=== PATIENT | male | born 1945 | race Caucasian/White ===

== ENCOUNTER 2020-03-30 08:28 | Emergency (ER) | payer OTHER, MEDICARE ==
[~2020-03-30] VITALS: Ht 177.8 cm; Wt 106.8 kg
[2020-03-30 08:33] VITALS: Ht 177.8 cm; Wt 106.8 kg
[2020-03-30] MEDS ORDERED: TOPROL XL25 MG PO (08:35)
[2020-03-30] MEDS ORDERED: JARDIANCE25 MG PO (08:35)
[2020-03-30] MEDS ORDERED: ASCORBIC ACID500 MG PO (08:36)
[2020-03-30] MEDS ORDERED: VITAMIN E100 UNIT PO (08:36)
[2020-03-30] MEDS ORDERED: NIASPAN1000 MG PO (08:36)
[2020-03-30] MEDS ORDERED: FISH OIL 1,0001 CA1 PO (08:36)
[2020-03-30] MEDS ORDERED: CARDURA4 MG PO (08:36)
[2020-03-30] MEDS ORDERED: GLUCOPHAGE1000 MG PO (08:37)
[2020-03-30] MEDS ORDERED: LISINOPRIL10 MG PO (08:37)
[2020-03-30] MEDS ORDERED: PRAVACHOL40 MG PO (08:37)
[2020-03-30] MEDS ORDERED: GLIMEPIRIDE2 MG PO (08:37)
[2020-03-30 09:24] LABS: BASOPHILS 0.3 % (0-2); CALC OSMOLALITY 283 mosm/kg (275-300); CALCIUM 8.7 mg/dL (8.5-10.1); CARBON DIOXIDE 24.4 mmol/L (21.0-32.0); CHLORIDE - SERUM 104 mmol/L (98-107); CREATININE - SERUM 1.1 mg/dL (0.6-1.3); EOSINOPHILS 1.1 % (0-7); GLUCOSE 211 mg/dL (74-106); HEMATOCRIT 45.8 % (42.0-54.0); HEMOGLOBIN 15.1 g/dL (13.5-17.5); IMMATURE GRANULOCYTES 0.1 % (0-5); LYMPHOCYTES 13.4 % (15-50); MCH 30.1 pg (26.0-34.0); MCV 91.2 fL (80.0-100.0); MEAN PLATELET VOLUME 10.2 fL (7.4-10.4); MONOCYTES 4.9 % (2-11); NEUTROPHILS 80.2 % (40-80); PLATELET COUNT 147 10x3/uL (130-400); POTASSIUM - SERUM 4.2 mmol/L (3.5-5.1); RBC 5.02 10x6/uL (4.20-6.10); RDW 12.9 % (11.5-14.5); SODIUM 138 mmol/L (136-145); UREA NITROGEN 18 mg/dL (7-18); eGFR NON AFRICAN AMERICAN 69 mL/min (90-120)
[2020-03-30 09:32] LABS: APTT 36.1 SECONDS (22.8-39.4); INR 0.9 (0.85-1.17); PROTIME 12.1 SECONDS (11.6-15.0)
[2020-03-30 09:41] LABS: ALBUMIN 4.2 g/dL (3.4-5.0); ALKALINE PHOSPHATASE 60 U/L (30-120); ALT (SGPT) 30 U/L (10-68); BILIRUBIN - TOTAL 0.64 mg/dL (0.2-1.3); CKMB 2.2 U/L (0.0-3.6); CREATINE KINASE 124 UL (21-232); MAGNESIUM - SERUM 1.8 mg/dL (1.8-2.4); PROTEIN - SERUM 7.6 g/dL (6.4-8.2)
[2020-03-30 09:42] LABS: TROPONIN-I < 0.017 ng/mL (0.000-0.060)
[2020-03-30 11:11] VITALS: BP 150/72
== END 2020-03-30 11:12 | disposition home or self-care (01) ==
LOC: D.ER 08:28
PROVIDERS: Family Medicine
DX: R42 Dizziness and giddiness (principal); E11.9 Type 2 diabetes mellitus without complications; I10 Essential (primary) hypertension; Z79.84 Long term (current) use of oral hypoglycemic drugs